=== PATIENT | female | born 1980 ===

== ENCOUNTER 2018-04-24 08:55 | Observation (INO) | payer SELFPAY ==
[2018-04-24] MEDS ORDERED: Sodium Chloride 0.9% 1,000 ML IV STA ×2 (09:46→10:08)
--- NOTE | 2018-04-24 09:50 | ED PDOC ---
HPI: Female Pain Time Seen by Provider: 04/24/18 09:14 Chief Complaint (Nursing): Female Genitourinary Chief Complaint (Provider): Vaginal bleeding History Per: Patient History/Exam Limitations: no limitations Onset/Duration Of Symptoms: Days (yesterday) Current Symptoms Are (Timing): Still Present Additional Complaint(s): Pt. with pelvic cramping. Vaginal bleeding. No dizziness, back pain, dysuria. No nausea, vomit, chest pain, dyspnea. No fever. Is preg. Past Medical History Reviewed: Nursing Documentation, Vital Signs Vital Signs: Last Vital Signs Temp 98.0 F 04/24/18 09:15 Pulse 78 04/24/18 09:15 Resp 14 04/24/18 09:15 BP 111/70 04/24/18 09:15 Pulse Ox 97 04/24/18 09:15 - Medical History PMH: Asthma Denies: Chronic Kidney Disease - Surgical History Surgical History: No Surg Hx - Family History Family History: States: Unknown Family Hx - Immunization History Hx Tetanus Toxoid Vaccination: No Hx Influenza Vaccination: No Hx Pneumococcal Vaccination: No - Home Medications Home Medications: Ambulatory Orders Medication Instructions Recorded Albuterol Sulfate [Proventil Hfa] 1 inhaler PRN PRN 04/24/18 - Allergies Allergies/Adverse Reactions: Allergies Allergy/AdvReac Type Severity Reaction Status Date / Time No Known Allergies Allergy Verified 04/24/18 09:14 Review of Systems ROS Statement: Except As Marked, All Systems Reviewed And Found Negative Genitourinary Female: Positive for: Vaginal Bleeding, Pelvic Pain Physical Exam - Reviewed Nursing Documentation Reviewed: Yes Vital Signs Reviewed: Yes - Physical Exam Appears: Positive for: Uncomfortable Head Exam: Positive for: ATRAUMATIC, NORMAL INSPECTION, NORMOCEPHALIC Skin: Positive for: Normal Color, Warm, DRY Eye Exam: Positive for: EOMI, Normal appearance, PERRL ENT: Positive for: Normal ENT Inspection Neck: Positive for: Normal, Painless ROM Cardiovascular/Chest: Positive for: Regular Rate, Rhythm Respiratory: Positive for: CNT, Normal Breath Sounds Gastrointestinal/Abdominal: Positive for: Soft, Tenderness (across lower) Pelvic Exam: Positive for: External Exam Normal, Active Bleeding, Blood, Tender Uterus, Other (gross blood and clots coming out; unable to see cervix) Back: Positive for: Normal Inspection. Negative for: L CVA Tenderness, R CVA Tenderness Extremity: Positive for: Normal ROM. Negative for: Tenderness, Pedal Edema Neurologic/Psych: Positive for: Alert, Oriented - Laboratory Results Result Diagrams: 04/24/18 10:17 - ECG O2 Sat by Pulse Oximetry: 97 Pulse Ox Interpretation: Normal - Progress ED Course And Treament: 1005: Stable. AAOx3. Spoke with Dr. Hampton. Will come down to see pt. 1102: Dr. Hampton will take pt. to the OR. He saw pt. and will need further treatment. - Critical Care Total Time (In Min): 30 Documented Critical Care: Time excludes all time spent performint seperately billable procedures Disposition - Clinical Impression Clinical Impression: Vaginal bleeding - Patient ED Disposition Is Patient to be Admitted: Yes Counseled Patient/Family Regarding: Studies Performed, Diagnosis - Disposition Disposition Time: 11:03 Condition: FAIR - Pt Status Changed To: Hospital Disposition Of: Observation - POA Present On Arrival: None
[2018-04-24 10:35] LABS: ALB/GLOB RATIO 1.1 (1.0-2.1); ALBUMIN 4.6 g/dL (3.5-5.0); ALT/SGPT 25 U/L (9-52); AST/SGOT 25 U/L (14-36); BLOOD UREA NITROGEN 7 mg/dl (7-17); CALCIUM 9.5 mg/dL (8.4-10.2); GFR AFRICAN-AMERICAN > 60; GFR NON-AFRICAN AMERICAN > 60
--- NOTE | 2018-04-24 10:43 | CP.PCM.HP ---
History of Present Illness - History of Present Illness History of Present Illness: 37yo at 5-6 wks GA based on stated LMP presented to ED with cramping and heavy vaginal bleeding. Pt examined in ED, but bleeding too heavy and patient level of pain to high to be able to fully evaluate. Discussed options with patient. Pt consented for EUA and D&C to evalutate and treat heavy bleeding. Discussed the R/B/A of procedure with patient and all patient questions answered. Trial Manager present. Present on Admission - Present on Admission Any Indicators Present on Admission: No History of DVT/PE: No History of Uncontrolled Diabetes: No Urinary Catheter: No Decubitus Ulcer Present: No Past Patient History - Infectious Disease Hx of Infectious Diseases: None - Past Social History Smoking Status: Never Smoked - CARDIAC Hx Cardiac Disorders: No - PULMONARY Hx Asthma: Yes - NEUROLOGICAL Hx Neurological Disorder: No - HEENT Hx HEENT Problems: No - RENAL Hx Chronic Kidney Disease: No - ENDOCRINE/METABOLIC Hx Endocrine Disorders: No - HEMATOLOGICAL/ONCOLOGICAL Hx Blood Disorders: No - INTEGUMENTARY Hx Dermatological Problems: No - MUSCULOSKELETAL/RHEUMATOLOGICAL Hx Musculoskeletal Disorders: No - GASTROINTESTINAL Hx Gastrointestinal Disorders: No - GENITOURINARY/GYNECOLOGICAL Hx Genitourinary Disorders: No - PSYCHIATRIC Hx Psychophysiologic Disorder: No Hx Substance Use: No - SURGICAL HISTORY Hx Surgeries: No - ANESTHESIA Hx Anesthesia: No Meds Allergies/Adverse Reactions: Allergies Allergy/AdvReac Type Severity Reaction Status Date / Time No Known Allergies Allergy Verified 04/24/18 09:14 Physical Exam - Constitutional Appears: Non-toxic, In Acute Distress - Eye Exam Eye Exam: Normal appearance, PERRL - ENT Exam ENT Exam: Mucous Membranes Moist - GI/Abdominal Exam GI & Abdominal Exam: Soft. absent: Distended, Guarding, Rebound, Tenderness - Exam Additional comments: large amount blood in vagina. Unable to visualize cervix due to amount of blood and patient discomfort Results - Vital Signs Recent Vital Signs: Last Vital Signs Temp 98.0 F 04/24/18 09:15 Pulse 78 04/24/18 09:15 Resp 14 04/24/18 09:15 BP 111/70 04/24/18 09:15 Pulse Ox 97 04/24/18 10:05 - Labs Result Diagrams: 04/24/18 10:17 Labs: Laboratory Results - last 24 hr 04/24/18 04/24/18 10:17 10:17 Sodium 141 Potassium 3.9 Chloride 104 Carbon Dioxide 20 L Anion Gap 21 H BUN 7 Creatinine 0.5 L Est GFR ( Amer) > 60 Est GFR (Non-Af Amer) > 60 Random Glucose 100 Calcium 9.5 Total Bilirubin 0.4 AST 25 ALT 25 Alkaline Phosphatase 72 Total Protein 8.6 H Albumin 4.6 Globulin 4.1 H Albumin/Globulin Ratio 1.1 BBK History Checked Patient has bt Assessment & Plan - Assessment and Plan (Free Text) Assessment: Incomplete Ab with active bleeding. Plan: Pt consented for D&C. Discussed R/B/A of procedure with mortar worker present. OR notified. - Date & Time Date: 04/24/18 Time: 10:47
[2018-04-24] MEDS ORDERED: Oxytocin 20 units in LR 0 ML IV ONE (10:48)
[2018-04-24] MEDS ORDERED: Ketamine 50 mg/ml Inj (10 ml) ONE (10:48)
[2018-04-24] MEDS ORDERED: Succinylcholine 200 mg/10 ml Inj IV ONE (10:48)
[2018-04-24] MEDS ORDERED: Etomidate 20 mg/10ml Inj IV ONE (10:48)
[2018-04-24] MEDS ORDERED: Lidocaine 4% (Laryng-O-Jet) Kit MM ONE (10:48)
[2018-04-24 10:49] LABS: PARTIAL THROMBOPLASTIN TIME 39.7 Seconds (25.6-37.1); PROTHROMBIN TIME 11.1 Seconds (9.8-13.1)
[2018-04-24 11:10] LABS: BASO # 0.1 K/uL (0.0-0.2); BASO % 0.6 % (0.0-2.0); EOS # 0.1 K/uL (0.0-0.7); EOS % 0.8 % (0.0-4.0); HEMOGLOBIN 9.7 g/dL (12.0-16.0); LYMPH # 1.9 K/uL (1.0-4.3); LYMPH % 19.3 % (20.0-40.0); MEAN CELL VOLUME 86.8 fl (81.0-99.0); MEAN CORPUSCULAR HEMOGLOBIN 29.3 pg (27.0-31.0); MEAN CORPUSCULAR HGB CONC 33.7 g/dL (33.0-37.0); MEAN PLATELET VOLUME 8.4 fl (7.2-11.7); MONO # 0.7 K/uL (0.0-0.8); MONO % 6.7 % (0.0-10.0); NEUT # 7.1 K/uL (1.8-7.0); NEUT % 72.6 % (50.0-75.0); RBC 3.32 Mil/uL (3.80-5.20); RED CELL DISTRIBUTION WIDTH 22.1 % (11.5-14.5); WHITE BLOOD COUNT 9.8 K/uL (4.8-10.8)
[2018-04-24] MEDS ORDERED: Lactated Ringer's 1,000 ML IV ONE ×2 (11:23)
[2018-04-24] MEDS ORDERED: Midazolam 2 MG/2 ML VIAL ONE (11:25)
[2018-04-24] MEDS ORDERED: Ipratropium 0.02% Inhal Soln (0.5 mg/2.5 ml) UD IH ONE ×2 (12:01→12:02)
[2018-04-24] MEDS ORDERED: Albuterol 0.083% Inhal Sol (2.5 mg/3 mL) UD INH ONE (12:01)
[2018-04-24 12:32] VITALS: RESP 18
[2018-04-24] MEDS ORDERED: Oxycodone/Acetaminophen 5/325 mg Tab PO PRN (12:41)
[2018-04-24 13:35] VITALS: PULSE 83
[2018-04-24 15:22] LABS: BASO % 0.2 % (0.0-2.0); HEMOGLOBIN 9.8 g/dL (12.0-16.0); LYMPH # 0.7 K/uL (1.0-4.3); LYMPH % 4.1 % (20.0-40.0); MEAN CELL VOLUME 86.3 fl (81.0-99.0); MEAN CORPUSCULAR HEMOGLOBIN 29.4 pg (27.0-31.0); MEAN CORPUSCULAR HGB CONC 34.1 g/dL (33.0-37.0); MEAN PLATELET VOLUME 8.7 fl (7.2-11.7); MONO # 0.2 K/uL (0.0-0.8); MONO % 0.9 % (0.0-10.0); NEUT # 15.7 K/uL (1.8-7.0); NEUT % 94.8 % (50.0-75.0); PLATELET COUNT 171 K/uL (130-400); RBC 3.32 Mil/uL (3.80-5.20); RED CELL DISTRIBUTION WIDTH 21.9 % (11.5-14.5); WHITE BLOOD COUNT 16.6 K/uL (4.8-10.8)
--- NOTE | 2018-04-24 15:55 | PCM.SURG1 ---
Surgeon's Initial Post Op Note - Surgeon's Notes Surgeon: Memo [employer] Supervisor: N/A Type of Anesthesia: General Endo Anesthesia Administered By: EDIS Pre-Operative Diagnosis: Incomplete Ab Operative Findings: +POC at cervix and within uterus. Otherwise normal appearing pelvic anatomy Post-Operative Diagnosis: Same Operation Performed: Suction D&C Specimen/Specimens Removed: POC Estimated Blood Loss: EBL {In ML}: 300 Blood Products Given: N/A Drains Used: No Drains Post-Op Condition: Good Date of Surgery/Procedure: 04/24/18 Time of Surgery/Procedure: 12:00
--- NOTE | 2018-04-24 15:56 | CP.PCM.DIS ---
Provider - Provider Date of Admission: 04/24/18 11:01 Attending physician: Clovis Hampton MD Time Spent in preparation of Discharge (in minutes): 10 Diagnosis - Discharge Diagnosis (1) Incomplete Status: Acute Priority: High Hospital Course - Lab Results Lab Results: Most Recent Lab Values WBC 16.6 K/uL (4.8-10.8) H D 04/24/18 15:05 RBC 3.32 Mil/uL (3.80-5.20) L 04/24/18 15:05 Hgb 9.8 g/dL (12.0-16.0) L 04/24/18 15:05 Hct 28.6 % (34.0-47.0) L 04/24/18 15:05 MCV 86.3 fl (81.0-99.0) 04/24/18 15:05 MCH 29.4 pg (27.0-31.0) 04/24/18 15:05 MCHC 34.1 g/dL (33.0-37.0) 04/24/18 15:05 RDW 21.9 % (11.5-14.5) H 04/24/18 15:05 Plt Count 171 K/uL (130-400) 04/24/18 15:05 MPV 8.7 fl (7.2-11.7) 04/24/18 15:05 Neut % (Auto) 94.8 % (50.0-75.0) H 04/24/18 15:05 Lymph % (Auto) 4.1 % (20.0-40.0) L 04/24/18 15:05 Power % (Auto) 0.9 % (0.0-10.0) 04/24/18 15:05 Eos % (Auto) 0.0 % (0.0-4.0) 04/24/18 15:05 Baso % (Auto) 0.2 % (0.0-2.0) 04/24/18 15:05 Neut # (Auto) 15.7 K/uL (1.8-7.0) H 04/24/18 15:05 Lymph # (Auto) 0.7 K/uL (1.0-4.3) L 04/24/18 15:05 Power # (Auto) 0.2 K/uL (0.0-0.8) 04/24/18 15:05 Eos # (Auto) 0.0 K/uL (0.0-0.7) 04/24/18 15:05 Baso # (Auto) 0.0 K/uL (0.0-0.2) 04/24/18 15:05 PT 11.1 Seconds (9.8-13.1) 04/24/18 10:17 INR 1.0 (0.9-1.2) 04/24/18 10:17 APTT 39.7 Seconds (25.6-37.1) H 04/24/18 10:17 Sodium 141 mmol/l (132-148) 04/24/18 10:17 Potassium 3.9 MMOL/L (3.6-5.0) 04/24/18 10:17 Chloride 104 mmol/L (98-107) 04/24/18 10:17 Carbon Dioxide 20 mmol/L (22-30) L 04/24/18 10:17 Anion Gap 21 (10-20) H 04/24/18 10:17 BUN 7 mg/dl (7-17) 04/24/18 10:17 Creatinine 0.5 mg/dl (0.7-1.2) L 04/24/18 10:17 Est GFR ( Amer) > 60 04/24/18 10:17 Est GFR (Non-Af Amer) > 60 04/24/18 10:17 Random Glucose 100 mg/dL (65-105) 04/24/18 10:17 Calcium 9.5 mg/dL (8.4-10.2) 04/24/18 10:17 Total Bilirubin 0.4 mg/dl (0.2-1.3) 04/24/18 10:17 AST 25 U/L (14-36) 04/24/18 10:17 ALT 25 U/L (9-52) 04/24/18 10:17 Alkaline Phosphatase 72 U/L (38-126) 04/24/18 10:17 Total Protein 8.6 G/DL (6.3-8.2) H 04/24/18 10:17 Albumin 4.6 g/dL (3.5-5.0) 04/24/18 10:17 Globulin 4.1 gm/dL (2.2-3.9) H 04/24/18 10:17 Albumin/Globulin Ratio 1.1 (1.0-2.1) 04/24/18 10:17 Beta HCG, Quant 4291.90 mIU/mL 04/24/18 10:17 Blood Type O POSITIVE 04/24/18 10:17 Antibody Screen Negative 04/24/18 10:17 Crossmatch See Detail 04/24/18 10:17 BBK History Checked Patient has bt 04/24/18 10:17 - Date & Time of H&P Date of H&P: 04/24/18 Time of H&P: 11:00 Discharge Exam - Head Exam Head Exam: ATRAUMATIC, NORMAL INSPECTION, NORMOCEPHALIC Discharge Plan - Follow Up Plan Condition: GUARDED Disposition: HOME/ ROUTINE Additional Instructions: follow up in clinic 1-2 weeks
[2018-04-24 16:31] VITALS: BP 108/74; TEMP 97.9; O2SAT 99
[2018-04-24 17:16] LABS: ANISOCYTOSIS SLIGHT; BANDS 5 % (0-2); LYMPHOCYTE 2 % (20-50); MONOCYTE 3 % (0-10); NEUTROPHIL 89 % (42-75); POIKILOCYTOSIS SLIGHT; REACTIVE LYMPHOCYTES 1 % (0-0); TOTAL CELLS COUNTED 100
[2018-04-24 17:17] LABS: POLYCHROMIC SLIGHT
[2018-04-24 17:18] LABS: OVALOCYTES SLIGHT; ROULEAUX FORMATION SLIGHT
[2018-04-24 17:19] LABS: PLATELET ESTIMATE NORMAL (NORMAL); STOMATOCYTES SLIGHT
[2018-04-24] MEDS ORDERED: Pneumococcal 23-Valent Vaccine IM ONE (17:52)
[2018-04-24] MEDS: Lactated Ringer's 1,000 ML IV SCH ×2 (18:05)
--- NOTE | 2018-04-25 09:31 | OP ---
PROCEDURE DATE: 04/24/2018 PREOPERATIVE DIAGNOSIS: Incomplete . POSTOPERATIVE DIAGNOSIS: Incomplete . OPERATION PERFORMED: Suction, dilation, and curettage. SURGEON: Clovis Hampton MD ANESTHESIOLOGIST: Syed Rees MD TYPE OF ANESTHESIA: General. OPERATIVE FINDINGS: Products of conception seen at cervix and within uterus; otherwise, normal-appearing pelvic anatomy. ESTIMATED BLOOD LOSS: 500 mL. URINE OUTPUT: 200 mL of clear urine. FLUIDS: 1200 mL of lactated Ringer's. COMPLICATIONS: None. DESCRIPTION OF PROCEDURE: The patient was taken to the operating room where general anesthesia was found to be adequate. The patient was prepped and draped in normal sterile fashion in the dorsal lithotomy position. A weighted speculum was placed at the posterior aspect of the vagina. A Pulido retractor was placed at the anterior surface of the vagina. The cervix was grasped with a single-tooth tenaculum at the anterior surface. Products of conception were seen protruding through cervical os. Products of conception were removed from the cervix. The suction device was placed through the cervix into the uterine cavity. The suction device was activated and remaining products of conception with blood removed from the uterus. Suction device removed from uterus. The uterine lining was curetted with a sharp curette until gritty texture noted. Suction device was replaced back into the uterine cavity and activated. Remaining blood in products of conception seen removed from uterus. Suction device deactivated and removed. The tenaculum was removed under direct visualization. Both the tenaculum site and cervical os were found to be hemostatic. The patient tolerated the procedure well. All sponge, lap, and needle counts were correct x2. There were no complications. The patient was taken to the recovery room in awake and stable condition. Clovis Hampton MD
== END 2018-04-24 19:30 | disposition home or self-care (01) ==
LOC: H.ER 08:55 → H.ERHOLD 11:01 → H.MEDSURG1 13:25
PROVIDERS: ADMIT Obstetrics & Gynecology; ATTEND Obstetrics & Gynecology
DX: O03.4 Incomplete spontaneous abortion without complication (principal); J45.909 Unspecified asthma, uncomplicated
CPT/HCPCS: 59812; 80053; 81025; 84702; 85025; 85610; 85730; 86850; 86900; 86920; 88305; 99285; G0378; J0330; J2001; J2210; J2250; J3010; J7030; J7120

== ENCOUNTER 2018-10-29 12:39 | Emergency (ER) | payer BC ==
[2018-10-29 12:39] VITALS: BMI 25.4
[2018-10-29] MEDS ORDERED: Sodium Chloride 0.9% 1,000 ML IV STA (13:43)
--- NOTE | 2018-10-29 13:45 | ED PDOC ---
HPI: Female Pain Time Seen by Provider: 10/29/18 13:44 Chief Complaint (Nursing): Female Genitourinary Chief Complaint (Provider): RIGHT ADNEXAL TENDERNESS History Per: Patient (38 Y/O FEMALE MISCARRIAGE 1 APPROX 4 WEEKS GESTATION HERE WITH RIGHT LOWER ABDOMINAL PAIN X FEW DAYS. DENIES ANY VAGINAL BLEEDING. SEEN BY [facility] AND SENT TO ED FOR R/O ECTOPIC.) Against Medical Advice - AMA Patient Left Against Medical Advice: The patient declines admission to the hospital and wishes to leave the Emergency Department. This action is against my medical advice. This decision was made with informed refusal. The patient was told that admission to the hospital is necessary. Explanation of the reasons why were discussed. The risks of leaving were explained to the patient and include, but are not limited to, worsening of known or currently unknown conditions, permanent disability and from undiagnosed or untreated conditions. The patient has the capacity to make this informed decision and understands my explanation of the current medical problem and risks of leaving. The patient voluntarily accepts these risks and signed an AMA form documenting our conversation. The patient was given the opportunity to ask questions and reconsider. The patient was encouraged to return to the Emergency Department at any time for further care. Past Medical History Reviewed: Historical Data, Nursing Documentation, Vital Signs Vital Signs: Last Vital Signs Temp 98.8 F 10/29/18 13:05 Pulse 78 10/29/18 13:05 Resp 16 10/29/18 13:05 BP 99/64 L 10/29/18 13:05 Pulse Ox 99 10/29/18 13:05 - Medical History PMH: Anemia, Asthma Denies: Chronic Kidney Disease - Family History Family History: States: Unknown Family Hx - Immunization History Hx Tetanus Toxoid Vaccination: No Hx Influenza Vaccination: No Hx Pneumococcal Vaccination: No - Home Medications Home Medications: Ambulatory Orders Medication Instructions Recorded No Known Home Med 10/16/18 - Allergies Allergies/Adverse Reactions: Allergies Allergy/AdvReac Type Severity Reaction Status Date / Time ibuprofen [From Advil] Allergy RASH Verified 10/27/18 09:04 Review of Systems ROS Statement: Except As Marked, All Systems Reviewed And Found Negative Physical Exam - Reviewed Nursing Documentation Reviewed: Yes Vital Signs Reviewed: Yes - Physical Exam Appears: Positive for: Well, Non-toxic, No Acute Distress Head Exam: Positive for: ATRAUMATIC, NORMAL INSPECTION, NORMOCEPHALIC Skin: Positive for: Normal Color, Warm, DRY Eye Exam: Positive for: EOMI, Normal appearance, PERRL ENT: Positive for: Normal ENT Inspection Neck: Positive for: Normal, Painless ROM Cardiovascular/Chest: Positive for: Regular Rate, Rhythm Respiratory: Positive for: CNT, Normal Breath Sounds Gastrointestinal/Abdominal: Positive for: Normal Exam, Soft Back: Positive for: Normal Inspection Extremity: Positive for: Normal ROM Neurologic/Psych: Positive for: Alert, Oriented - Laboratory Results Result Diagrams: 10/29/18 14:12 10/29/18 14:12 - ECG O2 Sat by Pulse Oximetry: 99 - Progress ED Course And Treament: US [place] IMPRESSION: Nine weeks 6 days live intrauterine gestation. No visible ectopic gestation identified. Limitations of the current examination: Nondiagnostic assessment of the left adnexa obscured by overlying bowel gas. US ABDOMEN. OTHER FINDINGS: The appendix is not visible. In the right lower quadrant peristalsing loops of bowel identified. No fluid collections or masses identified. IMPRESSION: Stable polypoid mass in the gallbladder. Nondiagnostic study of the appendix. SEEN BY SURGERY RESIDENT IN ED. D/W PATIENT TO OBTAIN MRI OF ABDOMEN/PELVIS IN MORNING. PATIENT UNABLE TO STAY DUE TO CHILDCARE. WILL RETURN TOMORROW AM. AMA PAPERWORK DISCUSSED AND SIGNED WITH HER. Disposition - Clinical Impression Clinical Impression: Abdominal pain affecting - Patient ED Disposition Is Patient to be Admitted: No - Disposition Disposition: Routine/Home Disposition Time: 19:15 Condition: STABLE Additional Instructions: POR FAVOR. REGRESA MANANA PARA MRI DE ABDOMEN PARA REVISAR PARA APPENDICITIS. Instructions: Leaving Against Medical Advice, Acute Abdomen (Belly Pain), Adult (DC) Print Language: ARABIC
[2018-10-29 14:15] LABS: BASO # 0.1 K/uL (0.0-0.2); BASO % 0.6 % (0.0-2.0); EOS % 0.6 % (0.0-4.0); HEMOGLOBIN 13.7 g/dL (12.0-16.0); LYMPH # 1.9 K/uL (1.0-4.3); LYMPH % 22.8 % (20.0-40.0); MEAN CELL VOLUME 91.4 fl (81.0-99.0); MEAN CORPUSCULAR HEMOGLOBIN 31.2 pg (27.0-31.0); MEAN CORPUSCULAR HGB CONC 34.2 g/dL (33.0-37.0); MEAN PLATELET VOLUME 9.2 fl (7.2-11.7); MONO # 0.4 K/uL (0.0-0.8); MONO % 5.2 % (0.0-10.0); NEUT % 70.8 % (50.0-75.0); RBC 4.39 Mil/uL (3.80-5.20); RED CELL DISTRIBUTION WIDTH 13.5 % (11.5-14.5); WHITE BLOOD COUNT 8.5 K/uL (4.8-10.8)
[2018-10-29 14:22] LABS: PROTHROMBIN TIME 11.9 Seconds (9.8-13.1)
[2018-10-29 14:25] LABS: PARTIAL THROMBOPLASTIN TIME 39.3 Seconds (25.6-37.1)
[2018-10-29 14:26] LABS: ALB/GLOB RATIO 1.1 (1.0-2.1); ALBUMIN 4.2 g/dL (3.5-5.0); ALT/SGPT 28 U/L (9-52); AST/SGOT 21 U/L (14-36); BLOOD UREA NITROGEN 6 mg/dl (7-17); CALCIUM 9.2 mg/dL (8.4-10.2); GFR NON-AFRICAN AMERICAN > 60
[2018-10-29 14:42] LABS: SQUAMOUS EPITHIAL 9 /hpf (0-5); URINE BILIRUBIN NEGATIVE (NEGATIVE); URINE BLOOD SMALL (NEGATIVE); URINE CLARITY CLOUDY (Clear); URINE COLOR YELLOW (YELLOW); URINE GLUCOSE (UA) NEG (Normal); URINE LEUKOCYTE ESTERASE NEG Leu/uL (Negative); URINE PROTEIN NEGATIVE (NEGATIVE); URINE UROBILINOGEN 0.2-1.0 mg/dL (0.2-1.0)
--- NOTE | 2018-10-29 15:06 | US ---
Date of service: 10/29/2018 PROCEDURE: ultrasound HISTORY: R/O ECTOPIC COMPARISON: None TECHNIQUE: Standard protocol for this study/examination. FINDINGS: LMP: 10/15/2018 Prior examinations from the current : None TECHNIQUE: Real-time 2D imaging, duplex and color Doppler. FINDINGS: Cardiac activity: Present Rate: 170 BPM Measurements: Regan rump length: 2.71 cm Gestational age based on CRL 9 weeks 4 days Gestational age 10 weeks 1 day based on gestational sac measurement 4.56 cm Gestational age derived from LMP: 2 weeks OSWALDO based on LMP: 07/22/2019 OSWALDO based on biometry: 05/28/2019. Gestational discordance noted. Yolk sac identified Cervix: No Cervical abnormalities: Negative examination for cervical dilatation or effacement. Closed cervix measuring 4.51 cm Subchorionic hemorrhage: None UTERUS: 6 x 8.7 x 9.8 cm. ADNEXA: Right: 2.3 x 2.4 x 2.7 cm. Normal Doppler arterial waveform documented. Left: Not visible. Fluid in the cul-de-sac: None. IMPRESSION: Nine weeks 6 days live intrauterine gestation. No visible ectopic gestation identified. Limitations of the current examination: Nondiagnostic assessment of the left adnexa obscured by overlying bowel gas.
--- NOTE | 2018-10-29 16:55 | US ---
Date of service: 10/29/2018 HISTORY: EVALUATE ruq pain gallbladder and APPENDIX COMPARISON: 09/09/2018 abdominal ultrasound TECHNIQUE: Sonographic evaluation of the right upper quadrant of the abdomen. FINDINGS: LIVER: Measures 15.2 cm in length. Patent portal vein. Portal venous flow: Hepatopetal. Unremarkable echogenicity of the liver parenchyma. No mass. No intrahepatic bile duct dilatation. GALLBLADDER: Irregular masseter into the wall of the gallbladder measures 1.7 x 2.2 x 1.9 cm. Similar finding identified on the prior study. COMMON BILE DUCT: Measures 4.4 mm. No stones. No dilatation. PANCREAS: Unremarkable as visualized. No mass. No ductal dilatation. RIGHT KIDNEY: Measures 4.7 x 11.3 cm in length. Normal echogenicity. No calculus, mass, or hydronephrosis. AORTA: No aneurysmal dilatation. IVC: Unremarkable. OTHER FINDINGS: The appendix is not visible. In the right lower quadrant peristalsing loops of bowel identified. No fluid collections or masses identified. IMPRESSION: Stable polypoid mass in the gallbladder. Nondiagnostic study of the appendix.
--- NOTE | 2018-10-29 18:59 | CP.PCM.CON ---
History of Present Illness - History of Present Illness History of Present Illness: Surgery: Dr. Jaramillo CC: Abd pain HPI: 38F who's 9 weeks was sent to ED from clinic to R/O ectopic . Pt states that she has had RLQ pain for the past month. Pain is intermittent, worse w. physical activity and occassionally exacerbated w. diet. She states that the pain feels like palpitations. She denies N/V. She did have diarrhea yesterday. She denies F/C. Transvaginal U/S done in ED did not show ectopic . Appendix was not visualized on U/S. U/S did show a gallbadder mass which the pt has been aware of for about 3 months. PMH: anemia, gallbladder mass PSH: Meds: MAR reviewed ALL: Ibuprofen Social: No ETOH/tobacco/drugs Fhx: non-contributory Review of Systems - Review of Systems All systems: reviewed and no additional remarkable complaints except (HPI) Past Patient History - Infectious Disease Hx of Infectious Diseases: None - Past Medical History & Family History Past Medical History?: No - Past Social History Smoking Status: Never Smoked - CARDIAC Hx Cardiac Disorders: No - PULMONARY Hx Asthma: Yes - NEUROLOGICAL Hx Neurological Disorder: No - HEENT Hx HEENT Problems: No - RENAL Hx Chronic Kidney Disease: No - ENDOCRINE/METABOLIC Hx Endocrine Disorders: No - HEMATOLOGICAL/ONCOLOGICAL Hx Anemia: Yes - INTEGUMENTARY Hx Dermatological Problems: No - MUSCULOSKELETAL/RHEUMATOLOGICAL Hx Musculoskeletal Disorders: No - GASTROINTESTINAL Hx Gastrointestinal Disorders: No - GENITOURINARY/GYNECOLOGICAL Hx Genitourinary Disorders: No - PSYCHIATRIC Hx Psychophysiologic Disorder: No Hx Emotional Abuse: No Hx Physical Abuse: No Hx Substance Use: No - SURGICAL HISTORY Hx Surgeries: Yes Hx Section: Yes (x1) Hx Dilation and Curettage: Yes (april-2017) - ANESTHESIA Hx Anesthesia: Yes Hx Anesthesia Reactions: No Hx Malignant Hyperthermia: No Meds Allergies/Adverse Reactions: Allergies Allergy/AdvReac Type Severity Reaction Status Date / Time ibuprofen [From Advil] Allergy RASH Verified 10/27/18 09:04 Physical Exam - Constitutional Appears: Non-toxic, No Acute Distress - Head Exam Head Exam: ATRAUMATIC, NORMOCEPHALIC - Eye Exam Eye Exam: EOMI - ENT Exam ENT Exam: Mucous Membranes Moist - Neck Exam Neck exam: Positive for: Full Rom - Respiratory Exam Respiratory Exam: NORMAL BREATHING PATTERN. absent: Accessory Muscle Use, R espiratory Distress - Cardiovascular Exam Cardiovascular Exam: REGULAR RHYTHM - GI/Abdominal Exam GI & Abdominal Exam: Soft, Tenderness (RLQ, +Rovsing). absent: Distended, Firm, Guarding, Rebound, Rigid - Extremities Exam Extremities exam: Negative for: calf tenderness, pedal edema - Neurological Exam Neurological exam: Alert, Oriented x3 - Psychiatric Exam Psychiatric exam: Normal Affect, Normal Mood Results - Vital Signs Recent Vital Signs: Last Vital Signs Temp 98.8 F 10/29/18 13:05 Pulse 78 10/29/18 13:05 Resp 16 10/29/18 13:05 BP 99/64 L 10/29/18 13:05 Pulse Ox 99 10/29/18 15:17 - Labs Result Diagrams: 10/29/18 14:12 10/29/18 14:12 Labs: Laboratory Results - last 24 hr 10/29/18 10/29/18 10/29/18 14:12 14:12 14:12 WBC 8.5 RBC 4.39 Hgb 13.7 Hct 40.1 MCV 91.4 MCH 31.2 H MCHC 34.2 RDW 13.5 Plt Count 239 MPV 9.2 Neut % (Auto) 70.8 Lymph % (Auto) 22.8 Powell % (Auto) 5.2 Eos % (Auto) 0.6 Baso % (Auto) 0.6 Neut # (Auto) 6.0 Lymph # (Auto) 1.9 Powell # (Auto) 0.4 Eos # (Auto) 0.0 Baso # (Auto) 0.1 PT 11.9 INR 1.0 APTT 39.3 H Sodium 136 Potassium 3.9 Chloride 105 Carbon Dioxide 22 Anion Gap 13 BUN 6 L Creatinine 0.4 L Est GFR ( Amer) > 60 Est GFR (Non-Af Amer) > 60 Random Glucose 89 Calcium 9.2 Total Bilirubin 0.2 AST 21 ALT 28 Alkaline Phosphatase 49 Total Protein 8.0 Albumin 4.2 Globulin 3.7 Albumin/Globulin Ratio 1.1 Beta HCG, Quant 032506.00 Urine Color Urine Clarity Urine pH Ur Specific Dougherty Urine Protein Urine Glucose (UA) Urine Ketones Urine Blood Urine Nitrate Urine Bilirubin Urine Urobilinogen Ur Leukocyte Esterase Urine RBC (Auto) Urine Microscopic WBC Ur Squamous Epith Cells Blood Type Antibody Screen BBK History Checked 10/29/18 10/29/18 14:12 14:18 WBC RBC Hgb Hct MCV MCH MCHC RDW Plt Count MPV Neut % (Auto) Lymph % (Auto) Powell % (Auto) Eos % (Auto) Baso % (Auto) Neut # (Auto) Lymph # (Auto) Powell # (Auto) Eos # (Auto) Baso # (Auto) PT INR APTT Sodium Potassium Chloride Carbon Dioxide Anion Gap BUN Creatinine Est GFR ( Amer) Est GFR (Non-Af Amer) Random Glucose Calcium Total Bilirubin AST ALT Alkaline Phosphatase Total Protein Albumin Globulin Albumin/Globulin Ratio Beta HCG, Quant Urine Color Yellow Urine Clarity Cloudy Urine pH 6.0 Ur Specific Dougherty 1.013 Urine Protein Negative Urine Glucose (UA) Neg Urine Ketones Negative Urine Blood Small Urine Nitrate Negative Urine Bilirubin Negative Urine Urobilinogen 0.2-1.0 Ur Leukocyte Esterase Neg Urine RBC (Auto) 2 Urine Microscopic WBC 2 Ur Squamous Epith Cells 9 H Blood Type O POSITIVE Antibody Screen Negative BBK History Checked Patient has bt - Imaging and Cardiology US - abdomen Status: Image reviewed by me, Report reviewed by me Assessment & Plan - Assessment and Plan (Free Text) Assessment: 38F 9 weeks , r/o appendicitis -recommend pt be placed in observation and undergo MRI in AM -NPO -IVF -no abx at this time -serial abd exams -AM labs -d/w attending Shadi [id number]
[2018-10-29 19:12] VITALS: BP 102/58; PULSE 70; RESP 18; TEMP 98.4
[2018-10-29 19:17] VITALS: O2SAT 99
== END 2018-10-29 19:16 | disposition left against medical advice (07) ==
LOC: H.ER 12:39
DX: O26.891 Other specified pregnancy related conditions, first trimester (principal); O99.011 Anemia complicating pregnancy, first trimester; Z3A.09 9 weeks gestation of pregnancy; Z88.6 Allergy status to analgesic agent
CPT/HCPCS: 76705; 76817; 80053; 81003; 81025; 84702; 85025; 85610; 85730; 86850; 86900; 87086; 96360; 96361; 99284; J7030

== ENCOUNTER 2019-02-02 06:44 | Day surgery (SDC) | payer BC ==
[2019-01-29 13:05] VITALS: BMI 21.9
[2019-02-02 07:21] LABS: BASO % 0.7 % (0.0-2.0); EOS # 0.1 K/uL (0.0-0.7); EOS % 2.1 % (0.0-4.0); HEMOGLOBIN 13.6 g/dL (12.0-16.0); LYMPH # 2.4 K/uL (1.0-4.3); LYMPH % 36.5 % (20.0-40.0); MEAN CELL VOLUME 91.8 fl (81.0-99.0); MEAN CORPUSCULAR HEMOGLOBIN 30.4 pg (27.0-31.0); MEAN CORPUSCULAR HGB CONC 33.1 g/dL (33.0-37.0); MEAN PLATELET VOLUME 8.8 fl (7.2-11.7); MONO # 0.5 K/uL (0.0-0.8); MONO % 8.1 % (0.0-10.0); NEUT # 3.4 K/uL (1.8-7.0); NEUT % 52.6 % (50.0-75.0); NRBC % 0.1 % (0.0-0.0); RBC 4.49 Mil/uL (3.80-5.20); RED CELL DISTRIBUTION WIDTH 14.4 % (11.5-14.5); WHITE BLOOD COUNT 6.5 K/uL (4.8-10.8)
[2019-02-02] MEDS ORDERED: Lactated Ringer's 1,000 ML IV ONE ×2 (07:32→09:00)
--- NOTE | 2019-02-02 07:37 | CP.SDSHP ---
Same Day Surgery H & P - History Proposed Procedure: Laparoscopic cholecystectomy Pre-Op Diagnosis: Gallbladder polyp - Previous Medical/Surgical History Misc: Anemia Previous Surgical History: C-SectionX1 - Allergies Allergies: Allergies ibuprofen [From Advil] Allergy (Verified 02/02/19 06:56) RASH ITCHY latex Allergy (Verified 02/02/19 06:56) REDNESS ITCHY - Physical Exam General Appearance: Well nurished, NAD, AAOX3 Vital Signs: Vital Signs 02/02/19 02/02/19 07:07 07:13 Temperature 97.9 F Pulse Rate 68 68 Respiratory 18 Rate Blood Pressure 108/71 O2 Sat by Pulse 100 Oximetry Mental Status: Alert & Oriented x3 Neuro: WNL Heart: WNL Lungs: WNL GI: WNL - {Optional Preform as Required} Abdomen: WNL Integument: WNL - Impression Impression: 38F with a PMH of anemia presents for Lap alejandra for GB polyps - Date & Time Date: 02/02/19 Time: 07:38 Short Stay Discharge - Short Stay Discharge Admitting Diagnosis/Reason for Visit: K80.20 Disposition: HOME/ ROUTINE Referrals: Carlos Santillan MD [Primary Care Provider] - Follow-up: Follow up 7-10 days Instructions: Cholecystectomy, Laparoscopic Surgery Additional Instructions (Diet, Activity): No dietary restrictions, no heavy lifting over 20lbs for 4 weeks no lifting over 40lbs for the 4 weeks after that. If you develop fevers over 101F chills any now or concerning symptoms please call your primary care doctor, or Dr. Little, or go to the emergency department. For pain please take ibeuprofen over the counter as directed on the bottle, you may alternate with tylenol.
[2019-02-02] MEDS ORDERED: DiphenhydrAMINE 50 mg/ml Inj IVP PRN (09:23)
[2019-02-02] MEDS ORDERED: Oxycodone/Acetaminophen 5/325 mg Tab PO PRN (09:26)
[2019-02-02] MEDS ORDERED: Lactated Ringer's 1,000 ML IV SCH (09:30)
--- NOTE | 2019-02-02 09:30 | PCM.SURG1 ---
Surgeon's Initial Post Op Note - Surgeon's Notes Surgeon: Dr. Little Sweet Potato Disintegrator: Dr. Mijares PGY3, Dr. Lance PGY2 Type of Anesthesia: General Endo Anesthesia Administered By: Dr. Ashley Pre-Operative Diagnosis: Gallbladder polyps Operative Findings: See operative dictation Post-Operative Diagnosis: Cholelithiasis Operation Performed: Laparoscopic Cholecystectomy Specimen/Specimens Removed: Gallbladder Estimated Blood Loss: EBL {In ML}: 10 Blood Products Given: N/A Drains Used: No Drains Post-Op Condition: Good Date of Surgery/Procedure: 02/02/19 Time of Surgery/Procedure: 09:29
[2019-02-02] MEDS: HYDROmorphone 0.5 mg/0.5 ml ISec IVP PRN ×2 (09:35→10:25)
[2019-02-02] MEDS ORDERED: Dexamethasone 4 mg/1 ml ONE (10:01)
[2019-02-02] MEDS ORDERED: Midazolam 2 MG/2 ML VIAL ONE (10:01)
[2019-02-02] MEDS ORDERED: Succinylcholine Chloride 20 mg/ml Syr (5 ml) IV ONE (10:01)
[2019-02-02] MEDS ORDERED: Neostigmine 1:1000 (1 mg/ml) Inj ONE (10:01)
[2019-02-02] MEDS ORDERED: ePHEDrine 50 mg/ml Inj ONE (10:01)
[2019-02-02] MEDS ORDERED: Lidocaine 4% (Laryng-O-Jet) Kit MM ONE (10:01)
[2019-02-02] MEDS ORDERED: Propofol 10 mg/ml Inj (20 ML) ONE (10:01)
[2019-02-02] MEDS ORDERED: Rocuronium 10 mg/ml (5 ml) ONE (10:01)
[2019-02-02 12:09] VITALS: RESP 20
[2019-02-02 13:20] VITALS: BP 109/53; PULSE 78; TEMP 97.7; O2SAT 99
--- NOTE | 2019-02-03 08:57 | OP ---
PROCEDURE DATE: 02/02/2019 PREOPERATIVE DIAGNOSIS: Gallbladder polyps. POSTOPERATIVE DIAGNOSIS: Cholelithiasis. PROCEDURE: Laparoscopic cholecystectomy. SURGEON: Katty Little MD. SURGEON ISABELLA: Og Mijares DO. PAPERHANGER SUPERVISOR: Casi Carrasco DO. TYPE OF ANESTHESIA: General, endotracheal anesthesia. ANESTHESIA ADMINISTERED BY: MD Radha Schrader. CLINICAL NOTE: Ms. Yanna Henson is a 38-year-old female who was evaluated by Dr. Little in clinic after she had an ultrasound that was significant for gallbladder polyps. Due to the size of the polyp, by a centimeter, cholecystectomy was indicated. Risks, benefits, and alternatives surgery were explained and documented in Dr. Little's clinical note including the of proceeding. Informed consent was obtained in the preop area by Dr. Little for laparoscopic partial open cholecystectomy which were performed today. DESCRIPTION OF PROCEDURE: The patient was brought to the operating room where a surgical time-out was done and the correct patient and procedure was agreed upon by everybody in the operating room. IV antibiotics were given. General anesthesia was induced. The patient was placed in a supine position. An infraumbilical incision was made. This dissection was made to go down to the fascia. Veress needle was inserted into the peritoneal cavity using a saline drop test to confirm placement. Inflation was begun until the abdomen was inflated to 15 mmHg. Using a size #11 bladed trocar, the abdomen was entered. The camera was inserted. No bleeding or damage to any structures were noted. Under direct visualization, the subxiphoid #11 bladed trocar was inserted as well as by the assist ports. The gallbladder was then retracted laterally towards the right shoulder and the dissection was carried out. All structures were identified. were placed at the distal aspect of the cystic duct, cystic duct. were then transected using a scissor. Then the cystic artery was skeletonized further and 2 clips were placed in the distal aspect, one was placed in the proximal aspect, again divided posteriorly. Small area of bleeding was noted behind the posterior branch of the artery, which was well clipped using laparoscopic scissor. Hemostasis was obtained. There was no bleeding noted. Using electrocautery on a , the gallbladder was dissected off the liver bed. The gallbladder was which was then suctioned. The gallbladder was removed from the liver bed without any bleeding . After the gallbladder was removed, to the abdomen. The gallbladder fossa was then inspected. Again, no bleeding noted. No bile or sludge . The abdomen was then copiously irrigated, suctioned in order to remove , the suctioned fluid was clear. The trocars were then removed from the abdomen. was evacuated from the abdomen. The infraumbilical port was closed using a 0 Vicryl on a UR5 needle. The skin was closed using a 4-0 Monocryl on a and the skin was then reinforced using a surgical glue. There were no intraoperative complications. Estimated blood loss was approximately 15 to 20 mL. All instruments and sponge counts were reported as correct. Surgical debriefing was performed. The patient was extubated and transferred to the PACU in stable condition. Og Mijares DO Katty Little MD cc: Katty Little MD
== END 2019-02-02 14:26 | disposition home or self-care (01) ==
LOC: H.OPSURG 06:44
PROVIDERS: ATTEND Specialist
DX: K80.10 Calculus of gallbladder with chronic cholecystitis without obstruction (principal); D64.9 Anemia, unspecified; Z88.6 Allergy status to analgesic agent
CPT/HCPCS: 36415; 47562; 85025; 88304; J0690; J1100; J1170; J2001; J2250; J2405; J2704; J2710; J3010; J7120